=== PATIENT | female | born 1990 | race Caucasian/White ===

== ENCOUNTER 2016-11-20 09:53 | Emergency (ER) | payer SELFPAY ==
[2016-11-20 11:31] VITALS: BP 105/61
--- NOTE | 2016-11-20 11:50 | UC ---
Throat Pain/Nasal Doni HPI - HPI Summary HPI Summary: Patient has had sore throat, cough, and increase sinus pressure for the past week. son had strep two weeks ago. patient is 16 weeks . - History of Current Complaint Chief Complaint: UCRespiratory Stated Complaint: SWEATS/CHILLS,HEADACHE,CONGESTION Time Seen by Provider: 11/20/16 11:34 Hx Obtained From: Patient Hx Last Menstrual Period: 03/12/16 ?: No Onset/Duration: Sudden Onset, Lasting Days Severity: Moderate Pain Intensity: 6 Pain Scale Used: 0-10 Numeric Cough: Nonproductive Associated Signs & Symptoms: Positive: Dysphagia, Wheezing, Sinus Discomfort, Nasal Discharge - Epiglottits Risk Factors Epiglottis Risk Factors: Negative - Allergies/Home Medications Allergies/Adverse Reactions: Allergies Allergy/AdvReac Type Severity Reaction Status Date / Time No Known Allergies Allergy Verified 11/20/16 11:31 Home Medications: Home Medications Vit W/ Ferrous Fumara [ Complete] 1 tab PO DAILY 11/20/16 [ History Confirmed 11/20/16] PMH/Surg Hx/FS Hx/Imm Hx Previously Healthy: Yes Endocrine History Of: Denies: Diabetes, Thyroid Disease Cardiovascular History Of: Denies: Cardiac Disorders, Hypertension, Pacemaker/ICD Respiratory History Of: Reports: Asthma - albuterol mdi prn Denies: COPD GI/ History Of: Denies: Ulcer - Surgical History Surgical History: Yes Surgery Procedure, Year, and Place: endometriosis laproscopy. APPY - Family History Known Family History: Negative: Cardiac Disease, Hypertension, Respiratory Disease - Social History Alcohol Use: None Substance Use Type: None Smoking Status (MU): Never Smoked Tobacco Review of Systems Constitutional: Fever, Fatigue Skin: Negative Eyes: Negative ENT: Sore Throat, Ear Ache, Nasal Discharge Respiratory: Shortness Of Breath, Cough Cardiovascular: Negative Gastrointestinal: Negative Genitourinary: Negative Motor: Negative Neurovascular: Negative Musculoskeletal: Negative Neurological: Headache Psychological: Negative All Other Systems Reviewed And Are Negative: Yes Physical Exam Triage Information Reviewed: Yes Appearance: Well-Nourished, Ill-Appearing, Pain Distress Vital Signs: Initial Vital Signs Temp 98.1 F 11/20/16 11:27 Pulse 95 11/20/16 11:27 Resp 14 11/20/16 11:27 BP 105/61 11/20/16 11:27 Pulse Ox 96 11/20/16 11:27 Vital Signs Reviewed: Yes Eye Exam: Normal Eyes: Positive: Conjunctiva Clear ENT: Positive: Pharyngeal erythema, Nasal congestion, Nasal drainage, TM bulging , Tonsillar swelling, Tonsillar exudate Dental Exam: Normal Neck exam: Normal Neck: Positive: Supple, Nontender, No Lymphadenopathy Respiratory Exam: Normal Respiratory: Positive: Chest non-tender, No respiratory distress, No accessory muscle use, Wheezing, Inspiration Cardiovascular Exam: Normal Cardiovascular: Positive: RRR, No Murmur, Pulses Normal Abdominal Exam: Normal Abdomen Description: Positive: Nontender, No Organomegaly, Soft Bowel Sounds: Positive: Present Musculoskeletal Exam: Normal Musculoskeletal: Positive: Strength Intact, ROM Intact, No Edema Neurological Exam: Normal Neurological: Positive: Alert, Muscle Tone Normal Psychological Exam: Normal Skin Exam: Normal Throat Pain/Nasal Course/Dx - Course Course Of Treatment: hx obtained, medications reviewed, advised to not take any more sudafed and ibuprofen, recommend follow up with [facility], rapid strep obtained and was negative. Outlined home and OTC remedies that are safe for . no medications given. - Differential Dx/Diagnosis Differential Diagnosis/HQI/PQRI: Influenza, Laryngitis, Otitis Media, Pharyngitis, Sinusitis, Tonsillitis, URI Provider Diagnoses: Bronchitis. sinus congestion Discharge - Discharge Plan Condition: Stable Disposition: HOME Patient Education Materials: Acute Bronchitis (ED) Additional Instructions: Your strep test was negative. increase your fluid intake. Get plenty of rest Use only TYLENOL for pain or fever. DO not take any sudafed, Motrin, advil or ibuprofen products as they can affect the development of the babies heart. Please let your OB know that you have take some. Nasal washes such as a nasal spray or NETI pot will help flush the sinuses. manual sinus drainage is a great way to help empty the sinuses as well. Here is the link to a video that explains this https://youtu.be/[email or web address]
== END 2016-11-20 12:23 | disposition home or self-care (01) ==
LOC: UCCORT 09:53
DX: J40 Bronchitis, not specified as acute or chronic (principal); R09.81 Nasal congestion
CPT/HCPCS: 87651; 99211; G0463

== ENCOUNTER 2018-08-03 08:48 | Emergency (ER) | payer OTHER ==
[2018-08-03 09:25] VITALS: BP 106/69
[2018-08-03] MEDS ORDERED: Ibuprofen ADULT LIQ* 600 MG/30 ML UDC PO ONE (09:37)
--- NOTE | 2018-08-03 10:30 | UC ---
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 Her older child has tested positive for strep and is on treatment. Her younger baby is with her now and having similar symptoms. She reports feeling feverish but denies cough, ear pain or nasal congestion. She has had all her vaccines but has not had a flu vaccine this year. - History of Current Complaint Chief Complaint: UCRespiratory Stated Complaint: ST Time Seen by Provider: 08/03/18 09:19 Hx Obtained From: Patient Hx Last Menstrual Period: n/a Pain Intensity: 6 Pain Scale Used: 0-10 Numeric - Allergies/Home Medications Allergies/Adverse Reactions: Allergies Allergy/AdvReac Type Severity Reaction Status Date / Time No Known Allergies Allergy Verified 08/03/18 09:25 Home Medications: Home Medications medroxyPROGESTERone ACETATE* [DEPO-Provera*] 150 mg IM SEE INSTRUCTIONS [History Confirmed 08/03/18] PMH/Surg Hx/FS Hx/Imm Hx Previously Healthy: Yes - Surgical History Surgical History: Yes Surgery Procedure, Year, and Place: endometriosis laproscopy. APPY - Family History Known Family History: Negative: Cardiac Disease, Hypertension, Respiratory Disease - Social History Alcohol Use: None Substance Use Type: None Smoking Status (MU): Never Smoked Tobacco Review of Systems Constitutional: Chills, Fatigue Eyes: Negative ENT: Sore Throat Respiratory: Negative Cardiovascular: Negative Gastrointestinal: Negative All Other Systems Reviewed And Are Negative: Yes Physical Exam Triage Information Reviewed: Yes Appearance: Well-Appearing, No Pain Distress, Well-Nourished Vital Signs: Initial Vital Signs Temp 98.3 F 08/03/18 09:21 Pulse 88 08/03/18 09:21 Resp 14 08/03/18 09:21 BP 106/69 08/03/18 09:21 Pulse Ox 98 08/03/18 09:21 Eyes: Positive: Conjunctiva Clear ENT: Positive: Pharyngeal erythema, TMs normal, Tonsillar exudate Neck: Positive: No Lymphadenopathy Respiratory: Positive: Lungs clear Cardiovascular: Positive: RRR Musculoskeletal Exam: Normal Skin Exam: Normal Diagnostics - Laboratory Diagnostic Studies Completed/Ordered: Rapid strep: Positive Throat Pain/Nasal Course/Dx - Course Course Of Treatment: Both mother and baby tested positive for strep here. They have a child at home also has strep. Treat with steroids, antibiotics. Follow- up with primary care physician. - Differential Dx/Diagnosis Provider Diagnoses: Streptococcal tonsillitis Discharge - Sign-Out/Discharge Documenting (check all that apply): Patient Departure All imaging exams completed and their final reports reviewed: No Studies - Discharge Plan Condition: Improved Disposition: HOME Prescriptions: Amoxicillin [Amoxicillin 250 MG CHEWABLE-] 500 mg PO TID #60 tab.chew Dexamethasone TAB* [Decadron TAB*] 8 mg PO DAILY #8 tab Patient Education Materials: Strep Throat (ED) Referrals: [facility] [Outside] [facility] [Outside] Additional Instructions: Tylenol, ibuprofen as needed for fever, comfort. Liquid diet. Tylenol or ibuprofen can be taken in liquid form. Return if worse, new symptoms or other concerns as discussed. - Billing Disposition and Condition Condition: IMPROVED Disposition: Home - Attestation Statements Document Initiated by Scribe: No
== END 2018-08-03 10:06 | disposition home or self-care (01) ==
LOC: UCCORT 08:48
DX: J03.00 Acute streptococcal tonsillitis, unspecified (principal); Z20.828 Contact with and (suspected) exposure to other viral communicable diseases
CPT/HCPCS: 87651; 99212; A9270-GY; G0463

== ENCOUNTER 2019-01-23 09:00 | Emergency (ER) | payer OTHER ==
[2019-01-23 10:30] VITALS: BP 116/85
--- NOTE | 2019-01-23 11:02 | UC ---
Respiratory Complaint HPI - HPI Summary HPI Summary: 28-year-old woman comes in with a chief complaint of chest congestion and wheezing. Patient was diagnosed the influenza back in early November 2018 and has had some respiratory problems since then. She's had wheezing intermittently is been using an albuterol inhaler. Her chest congestion is been worsening and as has her wheezing. She ran out of albuterol last night. The albuterol was helping. Patient's having green sputum. No recent fevers measured she does have chills. Activity makes his shortness breath worse. - History of Current Complaint Chief Complaint: UCRespiratory Stated Complaint: FEVER,CHILLS Time Seen by Provider: 01/23/19 10:30 Hx Last Menstrual Period: Depo-Provera Pain Intensity: 0 - Allergies/Home Medications Allergies/Adverse Reactions: Allergies Allergy/AdvReac Type Severity Reaction Status Date / Time No Known Allergies Allergy Verified 01/23/19 10:24 PMH/Surg Hx/FS Hx/Imm Hx Previously Healthy: Yes GI/ History: Gastroesophageal Reflux - Surgical History Surgical History: Yes Surgery Procedure, Year, and Place: endometriosis laproscopy. APPY - Family History Known Family History: Positive: Diabetes Negative: Cardiac Disease, Hypertension, Respiratory Disease - Social History Alcohol Use: None Substance Use Type: None Smoking Status (MU): Former Smoker Review of Systems All Other Systems Reviewed And Are Negative: Yes Constitutional: Positive: Chills, Fatigue Skin: Positive: Negative Eyes: Positive: Negative ENT: Positive: Nasal Discharge, Sinus Congestion Respiratory: Positive: Shortness Of Breath, Cough, Other - SEE HPI Cardiovascular: Positive: Negative Gastrointestinal: Positive: Negative Motor: Positive: Negative Neurovascular: Positive: Negative Musculoskeletal: Positive: Negative Neurological: Positive: Negative Psychological: Positive: Negative Is Patient Immunocompromised?: No Physical Exam Triage Information Reviewed: Yes Appearance: No Pain Distress, Well-Nourished, Ill-Appearing - MILD Vital Signs: Initial Vital Signs Temp 98.6 F 01/23/19 10:21 Pulse 92 01/23/19 10:21 Resp 24 01/23/19 10:21 BP 116/85 01/23/19 10:21 Pulse Ox 100 01/23/19 10:21 Vital Signs Reviewed: Yes Eye Exam: Normal Eyes: Positive: Conjunctiva Clear ENT: Positive: Pharyngeal erythema, Nasal congestion, Nasal drainage, TMs normal Neck exam: Normal Neck: Positive: Supple Respiratory: Positive: No respiratory distress, Rhonchi, Wheezing Cardiovascular: Positive: RRR Musculoskeletal Exam: Normal Musculoskeletal: Positive: Strength Intact, ROM Intact, No Edema, Other: - NO CALF TENDERNESS Neurological Exam: Normal Neurological: Positive: Alert, Muscle Tone Normal Psychological: Positive: Age Appropriate Behavior Skin Exam: Normal Respiratory Course/Dx - Course Course Of Treatment: I discussed getting a chest x-ray and doing a an albuterol nebulizer here in clinic. Patient declined at this time. We discussed the possibility of a pneumonia. The plan right now is to treat with Jesu azithromycin and albuterol and if the patient does not improve or gets worse she needs to follow up either with her primary care doctor or come back here go the emergency department. - Differential Dx/Diagnosis Provider Diagnosis: Bronchitis with bronchospasm Discharge - Sign-Out/Discharge Documenting (check all that apply): Patient Departure All imaging exams completed and their final reports reviewed: No Studies - Discharge Plan Condition: Stable Disposition: HOME Prescriptions: Albuterol 2.5MG/3ML (0.083%)* [Ventolin 2.5 MG/3 ML NEB.MIGUEL*] 2.5 mg INH Q4H PRN #30 neb.miguel PRN Reason: Wheezing Albuterol HFA INHALER* [Ventolin HFA Inhaler*] 2 puff INH Q4H PRN #1 mdi PRN Reason: Wheezing Azithromyxin MAGDY (NF) [Z-Magdy (Zithromax) 250 mg tabs #6] 2 tab PO .TODAY, THEN 1 DAILY #6 tab Patient Education Materials: Acute Bronchitis (ED), Bronchospasm (ED) Referrals: [facility] [Outside] Additional Instructions: FOLLOW UP WITH YOUR DOCTOR IF NOT COMPLETELY IMPROVED. GET RECHECKED FOR ANY WORSENING OF YOUR CONDITION OR QUESTIONS OR CONCERNS. - Billing Disposition and Condition Condition: STABLE Disposition: Home
== END 2019-01-23 11:18 | disposition home or self-care (01) ==
LOC: UCCORT 09:00
DX: J40 Bronchitis, not specified as acute or chronic (principal); J98.01 Acute bronchospasm; Z87.891 Personal history of nicotine dependence
CPT/HCPCS: 99212; G0463

== ENCOUNTER 2019-04-16 08:25 | Emergency (ER) | payer SELFPAY ==
[2019-04-16 08:31] VITALS: BP 119/61
[2019-04-16] MEDS ORDERED: Albuterol 2.5 MG/3 ML NEB.SOL* (0.083%) INH ONE (08:31)
--- NOTE | 2019-04-16 09:18 | UC ---
Respiratory Complaint HPI - HPI Summary HPI Summary: cough and sob x 1 day + wheezing with chest tightness, the problem is sever, worse with deep breathing , nothing is making it better had her albuterol neb tx this morning at 6 am with not much improvement productive cough x 1 week , + fever, chills and body aches hx of pneumonia - History of Current Complaint Chief Complaint: UCRespiratory Stated Complaint: SHORTNESS OF BREATH WHEEZY COUGH Time Seen by Provider: 04/16/19 08:31 Hx Obtained From: Patient Hx Last Menstrual Period: Depo-Provera ?: No Onset/Duration: Gradual Onset, Lasting Days - 1, Still Present Timing: Constant Severity Initially: Moderate Severity Currently: Severe Pain Intensity: 0 Character: Cough: Productive Aggravating Factors: Allergens, Deep Breaths Alleviating Factors: Nothing Associated Signs And Symptoms: Positive: Dyspnea, Fever, Chills, Wheezing. Negative: Calf Pain, Calf Swelling, URI, Nasal Congestion - Allergies/Home Medications Allergies/Adverse Reactions: Allergies Allergy/AdvReac Type Severity Reaction Status Date / Time No Known Allergies Allergy Verified 04/16/19 08:28 Home Medications: Home Medications Guaifenesin/Pseudo 600/60(NF) [Mucinex D 600/60 (NF)] 2 tab PO Q12H 04/16/19 [ History Confirmed 04/16/19] PMH/Surg Hx/FS Hx/Imm Hx Respiratory History: Asthma - Surgical History Surgical History: Yes Surgery Procedure, Year, and Place: endometriosis laproscopy. APPY - Family History Known Family History: Positive: Diabetes Negative: Cardiac Disease, Hypertension, Respiratory Disease - Social History Alcohol Use: None Substance Use Type: None Smoking Status (MU): Current Every Day Smoker Review of Systems All Other Systems Reviewed And Are Negative: Yes Constitutional: Positive: Fever, Chills, Fatigue Skin: Positive: Negative Eyes: Positive: Negative ENT: Positive: Negative Respiratory: Positive: Shortness Of Breath, Cough Cardiovascular: Positive: Negative Is Patient Immunocompromised?: No Physical Exam Triage Information Reviewed: Yes Appearance: Well-Appearing, No Pain Distress, Well-Nourished Vital Signs: Initial Vital Signs Temp 98.2 F 04/16/19 08:27 Pulse 107 04/16/19 08:27 Resp 20 04/16/19 08:27 BP 119/61 04/16/19 08:27 Pulse Ox 100 04/16/19 08:27 Vital Signs Reviewed: Yes Eye Exam: Normal Eyes: Positive: Conjunctiva Clear ENT: Positive: Normal ENT inspection, Hearing grossly normal, Pharynx normal Neck: Positive: Supple, Nontender, No Lymphadenopathy Respiratory: Positive: Chest non-tender, Lungs clear, Respiratory distress, Accessory muscle use. Negative: Crackles, Wheezing Cardiovascular: Positive: Tachycardia Skin Exam: Normal Diagnostics - Radiology No standard instances Radiology Interpretation Completed By: Radiologist Summary of Radiographic Findings: chest xray report : IMPRESSION: No radiographic evidence of acute cardiopulmonary disease. Respiratory Course/Dx - Differential Dx/Diagnosis Provider Diagnosis: Asthma, Bronchitis Discharge - Sign-Out/Discharge Documenting (check all that apply): Patient Departure All imaging exams completed and their final reports reviewed: Yes - Discharge Plan Condition: Stable Disposition: HOME Prescriptions: Azithromycin TAB* [Zithromax TAB (Z-CONSUELO) 250 mg #6 tabs] 2 tab PO .TODAY, THEN 1 DAILY #1 consuelo predniSONE TAB* [Deltasone 20 MG TAB*] 40 mg PO DAILY #10 tab Patient Education Materials: Asthma (DC), Acute Bronchitis (ED) Forms: *Work Release Referrals: No Primary Care Phys,NOPCP [Primary Care Provider] - 7 Days - Billing Disposition and Condition Condition: STABLE Disposition: Home
== END 2019-04-16 09:30 | disposition home or self-care (01) ==
LOC: UCCORT 08:25
DX: J45.909 Unspecified asthma, uncomplicated (principal); F17.210 Nicotine dependence, cigarettes, uncomplicated
CPT/HCPCS: 71046; 99212; G0463